=== PATIENT | female | born 2000 | race African-American/Black ===

== ENCOUNTER 2021-10-20 11:05 | Emergency (ER) | payer MEDICAID ==
[~2021-10-20] VITALS: Ht 162.6 cm; Wt 59.4 kg
--- NOTE | 2021-10-20 11:05 | NUR ---
KAREN ALS TO ER BED 10
[2021-10-20 11:08] VITALS: BP 114/80
--- NOTE | 2021-10-20 11:21 | NUR ---
21 Y/O FEMALE [facility] SUSPECTED OD ON FENTANYL PER PT STATEMENT. EMS WAS CALLED TO AN ALLEY BYSTANDERS WERE PERFORMING CPR ON PT. PT WAS FOUND WITH GCS 3(). AND PINPOINT PUPILS. AFTER 4MG NARCAN, GCS 15 LETHARGIC AND EASY TO AROUSE. ON ARRIVAL GCS 15, A&OX4, PERRLA 4MM BILATERAL. IV TO RIGHT AC 20G FIELD START SL. DENIES PAIN. DENIES FEVER/CHILLS. DENIES N/V/D. PMH: ANXIETY ALLERGIES: STRAWBERRIES
--- NOTE | 2021-10-20 12:01 | NUR ---
PT SLEEPING, VISIBLE EQUAL RISE OF CHEST, RR EVEN AND UNLABORED, VSS, WILL CONTINUE TO MONITOR.
--- NOTE | 2021-10-20 12:43 | NUR ---
PT SLEEPING ON RIGHT SIDE, RR EVEN AND UNLABORED, VSS, WILL CONTINUE TO MONITOR.
--- NOTE | 2021-10-20 13:21 | NUR ---
PT SLEEPING ON RIGHT SIDE, VISIBLE EQUAL RISE AND FALL OF CHEST, VSS, WILL CONTINUE TO MONITOR.
--- NOTE | 2021-10-20 15:21 | NUR ---
PT SLEEPING SUPINE, VISIBLE EQUAL RISE AND FALL OF CHEST, VSS, WILL CONTINUE TO MONITOR.
--- NOTE | 2021-10-20 17:54 | NUR ---
PT SLEEPING ON RIGHT SIDE, RR EVEN AND UNLABORED, VSS, WILL CONTINUE TO MONITOR.
--- NOTE | 2021-10-20 18:56 | NUR ---
IV TO R AC ESTABLISHED ON FIELD D/C'D PRIOR TO D/C. IV CATH INTACT, DIRECT PRESSURE APPLIED WITH GAUZE NO PHLEBITIS OR INFILTRATION.
[2021-10-20 19:01] VITALS: BP 112/59
--- NOTE | 2021-10-20 19:01 | NUR ---
Patient discharged with v/s stable. Written and verbal after care instructions given FOR OPIOID OVERDOSE and explained. Patient verbalized understanding. Ambulatory with steady gait. All questions addressed prior to discharge. Advised to follow up with PMD.
== END 2021-10-20 19:01 | disposition home or self-care (01) ==
LOC: MED 11:05
DX: T40.411A Poisoning by fentanyl or fentanyl analogs, accidental (unintentional), initial encounter (principal); R41.82 Altered mental status, unspecified; Y92.89 Other specified places as the place of occurrence of the external cause
CPT/HCPCS: 99291; 99292

== ENCOUNTER 2021-11-01 23:02 | Emergency (ER) | payer MEDICAID ==
[~2021-11-01] VITALS: Ht 157.5 cm; Wt 59.0 kg
[2021-11-01 23:08] VITALS: BP 122/95
--- NOTE | 2021-11-01 23:08 | NUR ---
KAREN GIVENS TAKEN TO BED #10
--- NOTE | 2021-11-01 23:33 | NUR ---
RECEIVED PT IN ROOM 10, PT IS AWAKE, ALERT, COHERENT. WAS BROUGHT IN BY AMBULANCE AND THAT EMS HAD GIVEN NARCAN IM. PT REPORTS THAT SHE USUALLY TAKES FENTANYL AND TODAY SHE TOOK MORE THAN SHE USED TO BE TAKING. PT REPORTS THAT IT'S A "FENTANYL ROCK". PT WAS ASKED IF SHE'S SUICIDAL AND VERBALIZED "I DONT KNOW... I HAVE SOMETHING MENTAL". PT DID NOT WANT TO ELABORATE FURTHER. PT GOWNED AND CONNECTED TO ER MONITOR.
--- NOTE | 2021-11-02 01:45 | NUR ---
ER MD AT BEDSIDE TO EXAMINE PT. PT ANSWERING QUESTIONS APPROPRIATELY, REQUESTING FOR A "TAXI". WILL AWAIT FOR DISCHARGE PAPERS FROM .
--- NOTE | 2021-11-02 01:55 | NUR ---
NO MANAGER CRITICAL CARE UNIT AT THIS TIME TO GIVE TAXI VOUCHERS PER CHARGE NURSE. THIS WAS RELAYED TO PT AND WAS ABLE TO GIVE A FRIEND'S NAME "DARION [phone]". NUMBER WAS CALLED BUT NO ANSWER. CALL BACK NUMBER WAS LEFT IN RECORDING. WILL TRY AGAIN IN A BIT.
--- NOTE | 2021-11-02 02:06 | NUR ---
DARION WAS CALLED AGAIN BUT WITH NO ANSWER. WILL TRY AGAIN.
--- NOTE | 2021-11-02 02:09 | NUR ---
PT REPORTS SHE IS STAYING AT [facility] ON [address], [address]. AND THAT SHE IS WITH "SARA" AND SARA CAN COME PICK HER UP. ATTEMPTING TO CALL [facility] MOT [phone].
[2021-11-02 02:18] VITALS: BP 103/61
--- NOTE | 2021-11-02 02:18 | NUR ---
Patient discharged with v/s stable. Written and verbal after care instructions given and explained. Patient verbalized understanding. Ambulatory with steady gait. All questions addressed prior to discharge. Advised to follow up with PMD.
== END 2021-11-02 02:18 | disposition home or self-care (01) ==
LOC: MED 23:02
DX: T40.411A Poisoning by fentanyl or fentanyl analogs, accidental (unintentional), initial encounter (principal); Y92.89 Other specified places as the place of occurrence of the external cause
CPT/HCPCS: 99283